=== PATIENT | male | born 1995 ===

== ENCOUNTER 2018-04-13 00:04 | Emergency (ER) | payer SELFPAY ==
[2018-04-13] MEDS ORDERED: TDAP Vaccine 0.5 mL Syr IM ONE (00:41)
[2018-04-13] MEDS ORDERED: Oxycodone/Acetaminophen 5/325 mg Tab PO STA (00:41)
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
[2018-04-13 00:56] VITALS: RESP 18; O2SAT 100
[2018-04-13] MEDS ORDERED: Amoxicillin-Clav 875-125 mg Tab PO STA (02:50)
[2018-04-13 03:08] VITALS: BP 113/58; PULSE 65; TEMP 98.6
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
== END 2018-04-13 03:25 | disposition home or self-care (01) ==
LOC: MERGE 00:04 → ED 00:04
DX: S02.2XXA Fracture of nasal bones, initial encounter for closed fracture (principal); S60.512A Abrasion of left hand, initial encounter; S00.31XA Abrasion of nose, initial encounter; W19.XXXA Unspecified fall, initial encounter; Y93.55 Activity, bike riding; M79.642 Pain in left hand; Z23 Encounter for immunization

== ENCOUNTER 2018-11-01 11:19 | Emergency (ER) | payer MEDICAID, OTHER ==
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
[2018-11-01] MEDS ORDERED: Sodium Chloride 0.9% 1,000 ML IV STA (11:59)
[2018-11-01 12:29] LABS: BASO # 0.02 K/mm3 (0.0-2.0); BASO % 0.3 % (0.0-3.0); EOS % 0.5 % (1.5-5.0); HEMOGLOBIN 13.3 g/dL (14.0-18.0); LYMPH # 1.6 (1.2-3.4); LYMPH % 26.2 % (22.0-35.0); MEAN CELL VOLUME 85.7 fl (80.0-105.0); MEAN CORPUSCULAR HEMOGLOBIN 26.9 pg (25.0-35.0); MEAN CORPUSCULAR HGB CONC 31.4 g/dl (31.0-37.0); MEAN PLATELET VOLUME 9.9 fl (7.0-11.0); MONO # 0.4 (0.1-0.6); MONO % 6.4 % (1.0-6.0); RBC 4.95 10^6/uL (3.5-6.1); RED CELL DISTRIBUTION WIDTH 13.4 % (11.5-14.5); WHITE BLOOD COUNT 6.1 10^3/uL (4.5-11.0)
[2018-11-01 12:42] LABS: ALB/GLOB RATIO 1.2 (1.1-1.8); ALBUMIN 4.2 g/dL (3.0-4.8); ALT/SGPT 33 U/L (7-56); AST/SGOT 26 U/L (17-59); BLOOD UREA NITROGEN 15 mg/dL (7-21); CALCIUM 9.1 mg/dL (8.4-10.5); GFR NON-AFRICAN AMERICAN > 60; LIPASE 56 U/L (23-300)
[2018-11-01 12:43] LABS: ACETAMINOPHEN < 10.0 ug/ml (10.0-20.0); SALICYLATE < 1 mg/dL (2.0-20.0)
[2018-11-01 12:51] LABS: TROPONIN I < 0.01 ng/mL
--- NOTE | 2018-11-01 12:52 | RAD ---
Date of service: 11/01/2018 HISTORY: overdose COMPARISON: No prior. FINDINGS: LUNGS: No active pulmonary disease. PLEURA: No significant pleural effusion identified, no pneumothorax apparent. CARDIOVASCULAR: No aortic atherosclerotic calcification present. Normal cardiac size. No pulmonary vascular congestion. OSSEOUS STRUCTURES: No significant abnormalities. VISUALIZED UPPER ABDOMEN: Normal. OTHER FINDINGS: None. IMPRESSION: No active disease.
[2018-11-01 12:58] LABS: PH,URINE 7.5 (4.7-8.0); URINE BILIRUBIN NEGATIVE (NEGATIVE); URINE BLOOD NEGATIVE (NEGATIVE); URINE GLUCOSE (UA) NEGATIVE (NEGATIVE); URINE LEUKOCYTE ESTERASE NEGATIVE Leu/uL (NEGATIVE); URINE PROTEIN NEGATIVE mg/dL (<30 mg/dL); URINE UROBILINOGEN 0.2 E.U./dL (<1 E.U./dL)
[2018-11-01 12:59] LABS: FREE T4 1.46 ng/dL (0.78-2.19)
[2018-11-01 13:02] LABS: URINE APPEARANCE CLEAR (CLEAR); URINE COLOR YELLOW (YELLOW)
[2018-11-01 13:29] LABS: BARBITURATES, UR NEGATIVE (NEGATIVE); BENZODIAZEPINES, UR NEGATIVE (NEGATIVE); OPIATES, UR NEGATIVE (NEGATIVE); PHENCYCLIDINE, UR NEGATIVE (NEGATIVE)
--- NOTE | 2018-11-01 21:16 | ED PDOC ---
Physical Exam - Physical Exam Narrative Physical Exam (Text): 11/01/18 21:17 Gen: VS reviewed, alert, well developed, well nourished, nontoxic, mild distress. ENT: normal pharynx. mouth dry Eye: EOMI, 3 mm b/l Neck: no JVD, supple, no adenopathy. CV: regular rate, regular rhythm, no rubs, no murmur, no gallops, S1, S2, pulses equal and strong. Pulm: no distress, clear to auscultation, no wheeze, no rhonchi, breath sounds equal, no rales. Abd: soft, nontender, no guarding, no rebound, no rigidity, normal bowel sounds. Ext: no edema. No evidence of lacerations or mutilation on upper extremities Skin: good color, no rash, no cyanosis. Psych: suicidal ideation. responds appropriately to questions, normal affect. Neuro: oriented x 3, CN2-12 intact grossly, motor intact, sensation intact. Able to respond to verbal commands and noxious stimuli Vital Signs Reviewed: Yes Vital Signs Temp Pulse Resp BP Pulse Ox 11/01/18 19:11 65 20 101/60 98 11/01/18 17:00 98.7 F 63 20 93/55 L 98 11/01/18 15:21 70 20 131/70 99 11/01/18 13:15 68 20 116/58 L 99 11/01/18 11:20 98.7 F 67 22 139/70 100 Temperature: Afebrile Blood Pressure: Normal Pulse: Regular Respiratory Rate: Normal Appearance: Positive for: Well-Appearing, Non-Toxic, Comfortable Pain Distress: None Mental Status: Positive for: Alert and Oriented X 3 Medical Decision Making ED Course and Treatment: 11/01/18 21:[address] Godniez. Patient with suicidal ideations, pending PES evaluation and disposition. 11/02/18 07:[address] lundy pending final disposition. awaiting bed at [facility]. - Lab Interpretations Lab Results: Troponin I < 0.01 ng/mL 11/01/18 12:15 Total Bilirubin 0.3 mg/dL (0.2-1.3) 11/01/18 12:15 AST 26 U/L (17-59) 11/01/18 12:15 ALT 33 U/L (7-56) 11/01/18 12:15 Alkaline Phosphatase 80 U/L (38-126) 11/01/18 12:15 Total Protein 7.7 g/dL (5.8-8.3) 11/01/18 12:15 Albumin 4.2 g/dL (3.0-4.8) 11/01/18 12:15 Globulin 3.5 gm/dL 11/01/18 12:15 Albumin/Globulin Ratio 1.2 (1.1-1.8) 11/01/18 12:15 Lipase 56 U/L (23-300) 11/01/18 12:15 Urine Color Yellow (YELLOW) 11/01/18 12:45 Urine Appearance Clear (CLEAR) 11/01/18 12:45 Urine pH 7.5 (4.7-8.0) 11/01/18 12:45 Ur Specific [place] 1.010 (1.005-1.035) 11/01/18 12:45 Urine Protein Negative mg/dL (<30 mg/dL) 11/01/18 12:45 Urine Glucose (UA) Negative mg/dL (NEGATIVE) 11/01/18 12:45 Urine Ketones Negative mg/dL (NEGATIVE) 11/01/18 12:45 Urine Blood Negative (NEGATIVE) 11/01/18 12:45 Urine Nitrate Negative (NEGATIVE) 11/01/18 12:45 Urine Bilirubin Negative (NEGATIVE) 11/01/18 12:45 Urine Urobilinogen 0.2 E.U./dL (<1 E.U./dL) 11/01/18 12:45 Ur Leukocyte Esterase Negative [place]/uL (NEGATIVE) 11/01/18 12:45 - RAD Interpretation Narrative RAD Interpretations (Text): 11/02/18 02:39 Reviewed Chest X-Ray, shows: FINDINGS: LUNGS: No active pulmonary disease. PLEURA: No significant pleural effusion identified, no pneumothorax apparent. CARDIOVASCULAR: No aortic atherosclerotic calcification present. Normal cardiac size. No pulmonary vascular congestion. OSSEOUS STRUCTURES: No significant abnormalities. VISUALIZED UPPER ABDOMEN: Normal. OTHER FINDINGS: None. IMPRESSION: No active disease. Radiology Orders: 11/01/18 11:32 CHEST PORTABLE [RAD] Stat Revenue Investigator: Radiologist - Medication Orders Current Medication Orders: Discontinued Medications Sodium Chloride (Sodium Chloride 0.9%) 1,000 mls @ 999 mls/hr IV .Q1H1M STA Stop: 11/01/18 12:59 Last Admin: 11/01/18 11:46 Dose: 999 mls/hr eMAR Start Stop Document 11/01/18 11:46 KV (Rec: 11/01/18 12:20 KV [id number]) Intravenous Solution Start Date 11/01/18 Start Time 11:46 - Scribe Statement The provider has reviewed the documentation as recorded by the Scribe Filipe Sexton All medical record entries made by the Scribe were at my direction and personally dictated by me. I have reviewed the chart and agree that the record accurately reflects my personal performance of the history, physical exam, medical decision making, and the department course for this patient. I have also personally directed, reviewed, and agree with the discharge instructions and disposition. Disposition/Present on Arrival - Present on Arrival Any Indicators Present on Arrival: No History of DVT/PE: No History of Uncontrolled Diabetes: No Urinary Catheter: No History of Decub. Ulcer: No History Surgical Site Infection Following: None - Disposition Have Diagnosis and Disposition been Completed?: Yes Diagnosis: Suicide attempt Disposition: [place] [facility] [place] Time: 19:41 (not actual) Condition: STABLE Referrals: PCP,NO [Primary Care Provider] - Follow up with primary Forms: [employer] (Macedonian)
--- NOTE | 2018-11-01 21:35 | CARD ---
APPROVED REPORT Date of service: 11/01/2018 EKG Measurement Heart [id number] <Conclusion> Normal sinus rhythm Rightward axis Incomplete right bundle branch block Borderline ECG
[2018-11-02 11:28] VITALS: RESP 12
[2018-11-02 19:01] VITALS: BP 123/80; PULSE 78; O2SAT 97
[2018-11-02 19:34] VITALS: TEMP 98.2
--- NOTE | 2018-11-03 01:25 | CON ---
DATE: 11/02/2018 HISTORY OF PRESENT ILLNESS: In short, the patient is a 22-year-old -[place] male with not known previous psychiatric history. The patient was brought by EMS because the patient was posting on Facebook that he wants to kill himself. The patient was seen by PAS worker in the emergency room. The patient presented to be depressed and hopeless as well as uncooperative. The patient did not want to sign himself into the psychiatric inpatient unit. This brief writer suggested [facility] screening process. The patient was evaluated and accepted for screening. At present moment, the patient is waiting for a bed to be available for him. This brief writer talked to the patient in the morning time. The patient presented to be sleepy, easily arousable. The patient is annoyed and irritable, does not want to participate in interview that much. The patient is aware about the plan that he is going to [facility] for screening process. The patient does not want to be on any medications and the patient does not want to be admitted. The patient denied hearing voices, denied seeing things, denied paranoid ideation, but the patient was making suicidal statement on the Facebook. Vital signs seem to be stable. Medications reviewed. Labs reviewed, most recent was from yesterday. MENTAL STATUS EXAMINATION: The patient appears to be with acceptable personal hygiene, flat affect, multiple tattoos on his neck. Mood described as "fine." Affect was irritable and angry. Mood incongruent. Thought process, concrete. Thought content, the patient does not present to be psychotic. Suicidal ideation cannot be excluded. Insight and judgment poor. Impulses are unpredictable. IMPRESSION: Rule out major depressive disorder, rule out mood spectrum disorder. PLAN: At present moment, the patient is waiting for a bed to be available at [facility]. This brief writer would suggest as-needed medications, Ativan and Geodon. The patient does not want to be on any medications. Meanwhile, we will continue one-to-one, and whenever bed available, the patient will be transferred to [facility]. Should you have any questions, give me a call back. Dr. Decker will follow up on this patient over the weekend. Thank you very much. Juanita Zuniga MD [facility] # [id number]
== END 2018-11-02 19:34 | disposition short-term general hospital (02) ==
LOC: ED 11:19
DX: T14.91XA Suicide attempt, initial encounter (principal); T51.2X2A Toxic effect of 2-Propanol, intentional self-harm, initial encounter; Y92.009 Unspecified place in unspecified non-institutional (private) residence as the place of occurrence of the external cause
CPT/HCPCS: 71045; 80053; 81003; 82550; 83690; 83735; 84439; 84443; 84484; 85025; 90791; 93005; 99285; G0480; J7030